=== PATIENT | female | born 1980 | race Caucasian/White ===

== ENCOUNTER 2023-09-18 20:33 | Emergency (ER) | payer MEDICAID ==
[~2023-09-18] VITALS: Ht 160 cm; Wt 74.2 kg
[2023-09-18 20:44] VITALS: O2SAT 99
[2023-09-18] MEDS ORDERED: HYDR25SU37 RC (22:03)
[2023-09-18 22:13] VITALS: BP 124/70; PULSE 65; RESP 18; TEMP 98
== END 2023-09-18 22:14 | disposition home or self-care (01) ==
LOC: ER 20:47
DX: K64.9 Unspecified hemorrhoids (principal); Z98.890 Other specified postprocedural states
CPT/HCPCS: 99283